=== PATIENT | female | born 1990 | race Caucasian/White ===

== ENCOUNTER 2017-06-01 23:29 | Emergency (ER) | payer OTHER ==
[~2017-06-01] VITALS: Ht 157.5 cm; Wt 81.7 kg
[2017-06-02] MEDS ORDERED: ACTICIN 5% CREA60 G1 TOP (00:23)
[2017-06-02] MEDS ORDERED: CLEOCIN HCL150 MG PO (00:23)
[2017-06-02 00:43] VITALS: BP 120/70
== END 2017-06-02 00:44 | disposition home or self-care (01) ==
LOC: ER 23:29
DX: B86 Scabies (principal); L03.011 Cellulitis of right finger; F32.9 Major depressive disorder, single episode, unspecified; F41.9 Anxiety disorder, unspecified; F17.210 Nicotine dependence, cigarettes, uncomplicated; F10.99 Alcohol use, unspecified with unspecified alcohol-induced disorder; F12.10 Cannabis abuse, uncomplicated; Z88.1 Allergy status to other antibiotic agents; Z88.2 Allergy status to sulfonamides